=== PATIENT | female | born 1950 | race Caucasian/White ===

== ENCOUNTER 2017-08-04 14:03 | Emergency (ER) | payer MEDICARE, MEDICAID ==
[~2017-08-04] VITALS: Ht 180.3 cm; Wt 51.1 kg
[2017-08-04] MEDS ORDERED: SODIUM CHLORIDE 0.9% 1,000ML IVBOLUS ONE (14:30)
[2017-08-04] MEDS ORDERED: SODIUM CHLORIDE FLUSH 10ML SYR IVF ONE (14:30)
[2017-08-04 14:43] LABS: HEMATOCRIT 41.4 % (34.6-47.8); HEMOGLOBIN 14.1 g/dL (11.7-16.4); WHITE BLOOD COUNT 12.9 x10^3/uL (3.4-10)
[2017-08-04 14:55] LABS: BLOOD UREA NITROGEN 14 mg/dL (7-18)
[2017-08-04] MEDS ORDERED: CEFTRIAXONE PMX 1GM/50ML 50 ML IV ONE (15:00)
[2017-08-04] MEDS ORDERED: CEFTRIAXONE PMX 1GM/50ML 50 ML ONE (15:33)
[2017-08-04 15:39] VITALS: BP 118/60
== END 2017-08-04 16:59 | disposition home or self-care (01) ==
LOC: ED 16:00
DX: J15.9 Unspecified bacterial pneumonia (principal); E87.6 Hypokalemia; J44.9 Chronic obstructive pulmonary disease, unspecified; F17.200 Nicotine dependence, unspecified, uncomplicated
CPT/HCPCS: 36415; 71020; 80048; 82040; 83605; 85025; 87040; 96361; 96365; 99285; J0696; J7030

== ENCOUNTER 2017-08-19 09:30 | Emergency (ER) | payer MEDICAID, MEDICARE ==
[~2017-08-19] VITALS: Ht 180.3 cm; Wt 49.5 kg
[2017-08-19] MEDS ORDERED: TRAM150C25 PO (11:03)
[2017-08-19] MEDS ORDERED: VENL37.52 PO (11:03)
[2017-08-19] MEDS ORDERED: TOPI25TA52 PO (11:03)
[2017-08-19] MEDS ORDERED: DONE5TAB52 PO (11:03)
[2017-08-19 11:43] VITALS: BP 128/75
== END 2017-08-19 11:48 | disposition home or self-care (01) ==
LOC: ED 11:31
DX: J15.9 Unspecified bacterial pneumonia (principal); J20.9 Acute bronchitis, unspecified; F32.9 Major depressive disorder, single episode, unspecified; J44.9 Chronic obstructive pulmonary disease, unspecified; Z59.0 Homelessness
CPT/HCPCS: 71045; 99283; J7512

== ENCOUNTER 2017-08-21 10:12 | Emergency (ER) | payer MEDICARE ==
[~2017-08-21] VITALS: Ht 180.3 cm; Wt 49.7 kg
[~2017-08-21 10:12] MED LIST: DONE5TAB52 PO; TOPI25TA52 PO; TRAM150C25 PO; VENL37.52 PO
[2017-08-21 10:17] VITALS: BP 116/71
== END 2017-08-21 12:05 | disposition home or self-care (01) ==
LOC: ED 11:08
DX: R06.00 Dyspnea, unspecified (principal); R05 Cough; Z76.0 Encounter for issue of repeat prescription; J44.9 Chronic obstructive pulmonary disease, unspecified; F17.200 Nicotine dependence, unspecified, uncomplicated; F32.9 Major depressive disorder, single episode, unspecified; G40.909 Epilepsy, unspecified, not intractable, without status epilepticus
CPT/HCPCS: 99283

== ENCOUNTER 2017-08-27 14:16 | Emergency (ER) | payer MEDICARE ==
[~2017-08-27] VITALS: Ht 180.3 cm; Wt 50.0 kg
[2017-08-27] MEDS ORDERED: SODIUM CHLORIDE 0.9% 1,000ML IVBOLUS ONE (15:00)
[2017-08-27] MEDS ORDERED: ACETAMINOPHEN 500 MG TABLET PO ONE (15:00)
[2017-08-27] MEDS ORDERED: SODIUM CHLORIDE FLUSH 10ML SYR IVF ONE (15:00)
[2017-08-27 15:03] LABS: BASOPHILS % (AUTO) 0 % (0-1); EOSINOPHILS % (AUTO) 0 % (1-7); LYMPHOCYTES # (AUTO) 1.04 x10^3/uL (1-3.4); LYMPHOCYTES % (AUTO) 9 % (22-44); MD NO; MEAN CORPUSCULAR HEMOGLOBIN 29.9 pg (27.0-34.8); MEAN CORPUSCULAR HGB CONC 33.3 g/dL (32.4-35.8); MEAN CORPUSCULAR VOLUME 89.8 fL (80-100); MEAN PLATELET VOLUME 8.5 fL (7.4-10.4); MONOCYTES % (AUTO) 5 % (2-9); NEUTROPHILS # (AUTO) 10.53 x10^3/uL (1.8-6.8); NEUTROPHILS % (AUTO) 87 % (42-75); PLATELET COUNT 229 x10^3/uL (130-400); RED BLOOD COUNT 4.37 x10^6/uL (3.82-5.3); RED CELL DISTRIBUTION WIDTH 13.3 % (9.6-15.2)
[2017-08-27 15:08] LABS: RAPID INFLUENZA A Negative (Negative); RAPID INFLUENZA B Negative (Negative)
[2017-08-27] MEDS ORDERED: ACETAMINOPHEN 500 MG TABLET ONE (15:39)
[2017-08-27] MEDS ORDERED: TRAZ300T2 PO (15:44)
[2017-08-27] MEDS ORDERED: VENL37.52 PO (15:44)
[2017-08-27 15:55] LABS: ALANINE AMINOTRANSFERASE 15 U/L (12-78); ALBUMIN 3.2 g/dL (3.4-5.0); ALKALINE PHOSPHATASE 67 U/L (45-117); ANION GAP 8 mmol/L (5-15); BILIRUBIN,TOTAL 0.5 mg/dL (0.2-1.0); CALCIUM 8.8 mg/dL (8.5-10.1); CHLORIDE 103 mmol/L (98-107); CREATININE 0.69 mg/dL (0.55-1.02); TOTAL PROTEIN 7.2 g/dL (6.4-8.2)
[2017-08-27] MEDS ORDERED: CEFTRIAXONE PMX 1GM/50ML 50 ML ONE (16:52)
[2017-08-27] MEDS ORDERED: AZITHROMYCIN 500 MG TABLET ONE (16:52)
[2017-08-27] MEDS ORDERED: AZITHROMYCIN 500 MG TABLET PO ONE (17:00)
[2017-08-27] MEDS ORDERED: CEFTRIAXONE PMX 1GM/50ML 50 ML IV ONE (17:00)
[2017-08-27 17:44] VITALS: BP 102/50
== END 2017-08-27 17:50 | disposition home or self-care (01) ==
LOC: ED 16:52
DX: J18.9 Pneumonia, unspecified organism (principal)
CPT/HCPCS: 36415; 71045; 80053; 83605; 84145; 85025; 87040; 87400; 96365; 99285; J0696; J7030

== ENCOUNTER 2017-08-28 17:53 | Emergency (ER) | payer MEDICARE ==
[~2017-08-28] VITALS: Ht 180.3 cm; Wt 94.7 kg
[~2017-08-28 17:53] MED LIST changes: +TRAZ300T2 PO
[2017-08-28 17:56] VITALS: BP 111/67
== END 2017-08-28 18:55 | disposition home or self-care (01) ==
LOC: ED 18:49
DX: Z76.0 Encounter for issue of repeat prescription (principal); J15.9 Unspecified bacterial pneumonia; J44.0 Chronic obstructive pulmonary disease with (acute) lower respiratory infection; F95.2 Tourette's disorder; G40.909 Epilepsy, unspecified, not intractable, without status epilepticus
CPT/HCPCS: 99283

== ENCOUNTER 2017-09-13 09:34 | Emergency (ER) | payer MEDICARE ==
[~2017-09-13] VITALS: Ht 182.9 cm; Wt 50.0 kg
[2017-09-13] MEDS ORDERED: methylPREDNISolone SOD SUCC 125 MG/2 ML ONE (09:42)
[2017-09-13] MEDS ORDERED: MORPHINE SULFATE 4 MG/ML, 1ML ONE (09:42)
[2017-09-13] MEDS ORDERED: ONDANSETRON 2MG/ML, 2ML ONE (09:43)
[2017-09-13] MEDS ORDERED: methylPREDNISolone SOD SUCC 125 MG/2 ML IVPush ONE (10:00)
[2017-09-13] MEDS ORDERED: PLEASE ENTER HEIGHT AND WEIGHT MC SCH (10:00)
[2017-09-13] MEDS ORDERED: ONDANSETRON 2MG/ML, 2ML IVPush ONE (10:00)
[2017-09-13] MEDS ORDERED: MORPHINE SULFATE 4 MG/ML, 1ML IVPush PRN (10:00)
[2017-09-13 10:22] LABS: BASOPHILS # (AUTO) 0.01 x10^3/uL (0-0.1); BASOPHILS % (AUTO) 0 % (0-1); EOSINOPHILS # (AUTO) 0.04 x10^3/uL (0-0.4); EOSINOPHILS % (AUTO) 1 % (1-7); LYMPHOCYTES # (AUTO) 0.95 x10^3/uL (1-3.4); LYMPHOCYTES % (AUTO) 13 % (22-44); MD NO; MEAN CORPUSCULAR HEMOGLOBIN 30.1 pg (27.0-34.8); MEAN CORPUSCULAR HGB CONC 33.3 g/dL (32.4-35.8); MEAN CORPUSCULAR VOLUME 90.2 fL (80-100); MEAN PLATELET VOLUME 8.6 fL (7.4-10.4); MONOCYTES # (AUTO) 0.42 x10^3/uL (0.2-0.8); MONOCYTES % (AUTO) 6 % (2-9); NEUTROPHILS # (AUTO) 6.18 x10^3/uL (1.8-6.8); NEUTROPHILS % (AUTO) 81 % (42-75); PLATELET COUNT 224 x10^3/uL (130-400); RED BLOOD COUNT 4.31 x10^6/uL (3.82-5.3); RED CELL DISTRIBUTION WIDTH 13.5 % (9.6-15.2)
[2017-09-13 10:32] LABS: ALBUMIN 3.6 g/dL (3.4-5.0); ANION GAP 9 mmol/L (5-15); CALCIUM 8.7 mg/dL (8.5-10.1); CHLORIDE 106 mmol/L (98-107); CREATININE 0.67 mg/dL (0.55-1.02)
[2017-09-13 11:46] LABS: MICROSCOPIC AUTO
[2017-09-13 11:50] LABS: CULTURE INDICATED? YES
[2017-09-13 12:29] VITALS: BP 92/53
== END 2017-09-13 13:23 | disposition home or self-care (01) ==
LOC: ED 11:51
DX: M48.56XA Collapsed vertebra, not elsewhere classified, lumbar region, initial encounter for fracture (principal); J44.9 Chronic obstructive pulmonary disease, unspecified; G40.909 Epilepsy, unspecified, not intractable, without status epilepticus; Z59.0 Homelessness
CPT/HCPCS: 36415; 74176; 80048; 81001; 82040; 85025; 87086; 96374; 96375; 99285; J2405; J2930

== ENCOUNTER 2017-09-29 06:38 | Emergency (ER) | payer MEDICARE ==
[~2017-09-29] VITALS: Ht 180.3 cm; Wt 50.0 kg
[2017-09-29 07:33] VITALS: BP 142/87
== END 2017-09-29 07:37 | disposition home or self-care (01) ==
LOC: ED 07:31
DX: Z00.00 Encounter for general adult medical examination without abnormal findings (principal); J44.9 Chronic obstructive pulmonary disease, unspecified; G40.909 Epilepsy, unspecified, not intractable, without status epilepticus; F17.210 Nicotine dependence, cigarettes, uncomplicated
CPT/HCPCS: 99281